=== PATIENT | female | born 1945 | race Caucasian/White ===

== ENCOUNTER 2017-01-08 11:52 | Observation (INO) | payer OTHER ==
[~2017-01-08] VITALS: Ht 152.4 cm; Wt 75.7 kg
[~2017-01-08 11:52] MED LIST: ALIGN4 MG PO; ARTHRITIS PAIN650 M1 PO; ASPIRIN LOW DOS81 M1 PO; ASPIRIN325 MG PO; ATORVASTATIN CA80 MG PO; CALCIUM ANTAC1000 MG PO; CHANTIX0.5 MG PO; CIPRO500 MG PO; COREG25 M1 PO; COREG25 MG PO; CYMBALTA60 MG PO; Coreg PO; Coumadin Protocol PO; Coumadin,Jantoven PO; Cymbalta PO; DIABETA,MICRON2.5 MG PO; DIABETA5 MG PO; Diabeta,Micronase PO; ECOTRIN325 MG PO; FISH OIL 1,0001 EAC7 PO; FISH OIL 1,0001 EAC8 PO; FLEXERIL10 MG PO; Feosol PO; GLIMEPIRIDE1 MG PO; GLIMEPIRIDE2 MG PO; GLYBURIDE5 MG PO; HYDROCHLOROTHIA25 MG PO; HYDROCODON-ACE1 EAC7 PO; Hydrodiuril,Oretic,E PO; IBUPROFEN800 MG PO; JANUVIA100 MG PO; LEXAPRO10 MG PO; LIDODERM 5% P1 PATCH TD; LIPITOR40 MG PO; LISINOPRIL40 MG PO; LORTAB 7.5-3251 EACH PO; Lipitor PO; MEDROL DOSEPAK4 MG PO; MIRALAX17 GM PO; MOBIC15 MG PO; MOBIC7.5 MG PO; MORPHINE SULFAT15 M1 PO; MOTRIN400 MG PO; MOTRIN800 MG PO; NITROGLYCERIN0.4 MG SL; NITROSTAT0.4 MG SL; Nitroglycerin SL; Nitrostat,NitroQuick SL; OMEPRAZOLE40 M1 PO; OXYCODONE-APAP1 EACH PO; PREVACID30 MG PO; PRILOSEC40 MG PO; PROBIOTIC1 EAC1 PO; Pyridoxine,Vitamin B PO; SENNA8.6 M1 PO; SENNA8.6 MG PO; ULTRAM50 MG PO; Ultram PO; VITAMIN B12-FO1 EACH PO; VITAMIN B6100 MG PO; VITAMIN D250000 UNIT PO; VITAMIN D5000 INTUN PO; VITAMIN D50000 UNI1 PO; Vicodin,Lortab 5/500 PO; Vicodin,Norco 5/325 PO; Vitamin B6 PO; ZANAFLEX4 MG PO; ZESTRIL,PRINIVI40 MG PO; Zestril,Prinivil PO
[2017-01-08 13:34] LABS: EOSINOPHIL (%) 1.8 % (0-5); EOSINOPHIL COUNT 0.2 K/uL (0-0.3); HEMATOCRIT 34.1 % (36.0-46.0); IMMATURE GRANULOCYTE (%) 0.6 % (0.0-0.7); IMMATURE GRANULOCYTE COUNT 0.1 K/uL; INSTRUMENT ABS NEUTROPHIL CT 5.9 K/uL; LYMPHOCYTE COUNT 2.4 K/uL (1.0-2.8); MCH 28.6 PG (29.0-34.0); MCHC 32.3 G/DL (30.0-36.0); MCV 88.8 FL (83-99); MEAN PLAT.VOLUME 8.7 uM^3 (9.5-12.4); MONOCYTE (%) 9.5 % (3-12); MONOCYTE COUNT 0.9 K/uL (0-0.8); NEUTROPHIL (%) 62.3 % (45-76); NEUTROPHIL COUNT 5.9 K/uL (1.8-6.4); PLATELET COUNT 247 K/uL (156-360); RBC DIS.WIDTH-CV 13.2 % (11.8-14.6); RBC DIS.WIDTH-SD 42.9 % (39-53); RED BLOOD COUNT 3.84 M/uL (3.80-5.20); WHITE BLOOD COUNT 9.5 K/uL (4.1-10.2)
[2017-01-08 13:56] LABS: TROP-I INTERPRETATION NEGATIVE; TROPONIN-I < 0.01 ng/mL (0.0-0.30)
[2017-01-08 13:56] LABS: CHLORIDE 106 mEq/L (99-109); POTASSIUM 4.2 mEq/L (3.7-5.4); SODIUM 136 mEq/L (136-147)
[2017-01-08 13:58] LABS: GLUCOSE 181 mg/dL (70-99)
[2017-01-08 14:00] LABS: ANION GAP 10 MEQ/L (2-14)
[2017-01-08 14:02] LABS: GFR ESTIMATE (CALCULATED) 52 mL/min/
[2017-01-08 14:03] LABS: UREA NITROGEN (BUN) 29 mg/dL (9-23)
[2017-01-08] MEDS ORDERED: PRINIVIL20 MG PO (14:37)
[2017-01-08] MEDS ORDERED: LEXAPRO20 MG PO (14:38)
[2017-01-08] MEDS ORDERED: GLUCOPHAGE XR750 MG PO (14:39)
[2017-01-08] MEDS ORDERED: PROBIOTIC1 EAC1 PO (14:40)
[2017-01-08] MEDS ORDERED: LIDOCAINE700 MG TD (14:40)
[2017-01-08] MEDS ORDERED: IMODIUM A-D2 M2 PO (14:41)
[2017-01-08] MEDS ORDERED: AMARYL4 MG PO (14:41)
[2017-01-08] MEDS ORDERED: TURMERIC500 M1 PO (14:42)
[2017-01-08] MEDS ORDERED: SUPER CALCIUM600 MG PO (14:43)
[2017-01-08] MEDS ORDERED: CINNAMON500 MG PO (14:44)
[2017-01-08] MEDS ORDERED: GINKGO BILOBA500 MG PO (14:44)
[2017-01-08] MEDS ORDERED: BENADRYL25 MG PO (14:45)
[2017-01-08 17:18] LABS: TROP-I INTERPRETATION NEGATIVE; TROPONIN-I < 0.01 ng/mL (0.0-0.30)
[2017-01-08 17:42] VITALS: BP 147/75
[2017-01-08 17:50] LABS: POINT-OF-CARE METER ID UU13113700
[2017-01-08 20:00] VITALS: BP 164/90
[2017-01-08 20:16] VITALS: BP 167/72
[2017-01-08 21:04] LABS: POINT-OF-CARE METER ID UU14162513
[2017-01-08 22:55] LABS: TROP-I INTERPRETATION NEGATIVE; TROPONIN-I < 0.01 ng/mL (0.0-0.30)
[2017-01-09 00:48] LABS: ADD MIUA? YES; BILIRUBIN NEGATIVE; BLOOD NEGATIVE; COLOR STRAW ((YELLOW)); GLUCOSE (STRIP) NEGATIVE; KETONES NEGATIVE; LEUKOCYTES LARGE; NITRITE NEGATIVE; PROTEIN (STRIP) NEGATIVE; SPECIFIC GRAVITY 1.005 (1.000-1.030); UROBILINOGEN 0.2 MG/DL (0.2-1.0)
[2017-01-09 01:17] LABS: BACTERIA RARE /HPF; EPITHELIAL CELLS RARE /HPF; MUCUS NONE SEEN /LPF; RED BLOOD CELLS 0-5 /HPF (0-5); UCUL ADDED? NO; WHITE BLOOD CELLS 30-40 /HPF (0-5)
[2017-01-09 03:00] VITALS: BP 115/59
[2017-01-09 06:57] LABS: HEMATOCRIT 35.1 % (36.0-46.0); MCH 28.8 PG (29.0-34.0); MCHC 32.8 G/DL (30.0-36.0); MCV 87.8 FL (83-99); MEAN PLAT.VOLUME 8.9 uM^3 (9.5-12.4); PLATELET COUNT 250 K/uL (156-360); RBC DIS.WIDTH-CV 13.3 % (11.8-14.6); RBC DIS.WIDTH-SD 43.1 % (39-53); WHITE BLOOD COUNT 7.9 K/uL (4.1-10.2)
[2017-01-09 07:19] LABS: ANION GAP 11 MEQ/L (2-14); CHLORIDE 107 MEQ/L (99-109); GFR ESTIMATE (CALCULATED) 58 mL/min/; GLUCOSE 123 mg/dL (70-99); SAMPLE HEMOLYSIS CHECK 0; SAMPLE ICTERIC CHECK 0; SAMPLE LIPEMIA CHECK 0; SODIUM 141 MEQ/L (136-147); UREA NITROGEN (BUN) 23 mg/dL (9-23)
[2017-01-09 07:57] VITALS: BP 172/72
[2017-01-09 10:33] VITALS: BP 168/64
[2017-01-09 11:52] VITALS: BP 145/67
== END 2017-01-09 12:45 | disposition home or self-care (01) ==
LOC: EME → EDBD 11:52 → EDOF 14:46 → 5WEST 14:46 → EDOF 14:46 → 5WEST 16:58
PROVIDERS: Emergency Medicine; Hospitalist; Physician Assistant Medical
DX: R07.9 Chest pain, unspecified (principal); Z95.1 Presence of aortocoronary bypass graft; Z95.5 Presence of coronary angioplasty implant and graft; E11.9 Type 2 diabetes mellitus without complications; E78.5 Hyperlipidemia, unspecified; I25.10 Atherosclerotic heart disease of native coronary artery without angina pectoris; Z87.891 Personal history of nicotine dependence; I10 Essential (primary) hypertension
CPT/HCPCS: 71010; 80048; 81003; 82948; 84484; 85025; 85027; 85730; 93005; 99281; 99285; G0378; J0360; J1644; J1815; J3010

== ENCOUNTER 2018-02-10 05:28 | Day surgery (SDC) | payer OTHER ==
[~2018-02-10] VITALS: Ht 154.9 cm; Wt 68.4 kg
[~2018-02-10 05:28] MED LIST changes: +ALEVE PM CAPLE1 EACH PO; +AMARYL4 MG PO; -ASPIRIN325 MG PO; +ASPIRIN81 M2 PO; +BENADRYL25 MG PO; +CINNAMON500 MG PO; +GINKGO BILOBA500 MG PO; +GLUCOPHAGE XR750 MG PO; +IMODIUM A-D2 M2 PO; +LEXAPRO20 MG PO; +LIDOCAINE700 MG TD; +PRINIVIL20 MG PO; +SUPER CALCIUM600 MG PO; +TRAMADOL HCL50 MG PO; +TURMERIC500 M1 PO; +VITAMIN B-121000 MC3 PO; +VITAMIN B-6100 MG PO
[2018-02-10 05:54] VITALS: BP 140/65
[2018-02-10 11:00] VITALS: BP 173/77
[2018-02-10 15:45] VITALS: BP 197/91
[2018-02-10 20:28] VITALS: BP 178/79
[2018-02-11 00:17] VITALS: BP 180/80
[2018-02-11 04:34] VITALS: BP 184/72
[2018-02-11 08:00] VITALS: BP 127/60; BP 159/70
[2018-02-11] MEDS ORDERED: OXYCODONE HCL5 MG PO (08:26)
[2018-02-11 12:12] VITALS: BP 174/74
== END 2018-02-11 13:20 | disposition home or self-care (01) ==
LOC: SDC → ENRESERV 08:04 → 3WEST 09:10 → 2SOUTH 09:10 → SDC 09:38 → 3WEST 10:37 → SDC 15:42 → 3WEST 02-11 13:20
PROVIDERS: Orthopaedic Surgery
PROC: 0RRK0J7 Replacement of Left Shoulder Joint with Synthetic Substitute, Glenoid Surface, Open Approach (ICD-10-PCS; principal; 2018-02-10)
DX: M19.012 Primary osteoarthritis, left shoulder (principal); E11.9 Type 2 diabetes mellitus without complications; E78.5 Hyperlipidemia, unspecified; I10 Essential (primary) hypertension; I25.2 Old myocardial infarction; Z95.5 Presence of coronary angioplasty implant and graft; Z95.1 Presence of aortocoronary bypass graft; Z79.84 Long term (current) use of oral hypoglycemic drugs; Z79.82 Long term (current) use of aspirin; Z82.49 Family history of ischemic heart disease and other diseases of the circulatory system; F17.210 Nicotine dependence, cigarettes, uncomplicated
CPT/HCPCS: 82948; C1776; G0378; J0131; J0690; J1100; J1170; J2250; J2405; J2710; J2795; J3010; J7030; J7050; J7643; S0020

== ENCOUNTER 2018-02-22 10:45 | Emergency (ER) | payer OTHER ==
[~2018-02-22] VITALS: Ht 154.9 cm; Wt 66.2 kg
[~2018-02-22 10:45] MED LIST changes: +OXYCODONE HCL5 MG PO
[2018-02-22 11:10] LABS: HEMATOCRIT 34.6 % (36.0-46.0); HEMOGLOBIN 12.1 G/DL (11.9-15.5); MCH 30.3 PG (29.0-34.0); MCV 86.5 FL (83-99); PLATELET COUNT 332 K/uL (156-360); RBC DIS.WIDTH-CV 11.9 % (11.8-14.6); RBC DIS.WIDTH-SD 37.8 % (39-53); WHITE BLOOD COUNT 13.6 K/uL (4.1-10.2)
[2018-02-22 11:23] LABS: ALBUMIN 4.2 g/dL (3.2-4.8)
[2018-02-22 11:24] LABS: CHLORIDE 98 mEq/L (99-109); POTASSIUM 3.7 mEq/L (3.7-5.4); SODIUM 136 mEq/L (136-147)
[2018-02-22 11:26] LABS: GLUCOSE 179 mg/dL (70-99); TOTAL PROTEIN 7.2 g/dL (6.4-8.3)
[2018-02-22 11:28] LABS: TOTAL BILIRUBIN 0.3 mg/dL (0.0-1.0)
[2018-02-22 11:29] LABS: ALKALINE PHOSPHATASE 68 IU/L (3-129)
[2018-02-22 11:30] LABS: CREATININE 0.6 mg/dL (0.6-1.3); GFR ESTIMATE (CALCULATED) > 59 mL/min/
[2018-02-22 11:31] LABS: AST (GOT) 13 IU/L (2-34); UREA NITROGEN (BUN) 15 mg/dL (9-23)
[2018-02-22 11:32] LABS: ALT (GPT) 7 IU/L (3-49)
[2018-02-22 13:25] LABS: APPEARANCE CLEAR ((CLEAR)); BILIRUBIN NEGATIVE; BLOOD NEGATIVE; COLOR YELLOW ((YELLOW)); GLUCOSE (STRIP) NEGATIVE; KETONES NEGATIVE; LEUKOCYTES TRACE; NITRITE NEGATIVE; PROTEIN (STRIP) NEGATIVE; SPECIFIC GRAVITY 1.017 (1.000-1.030); UROBILINOGEN 0.2 MG/DL (0.2-1.0)
[2018-02-22 13:29] LABS: BACTERIA RARE /HPF; EPITHELIAL CELLS RARE /HPF; HYALINE CASTS 0-5 /LPF; MUCUS TRACE /LPF; RED BLOOD CELLS 0-5 /HPF (0-5); UCUL ADDED? NO; WHITE BLOOD CELLS 0-5 /HPF (0-5)
[2018-02-22] MEDS ORDERED: PROTONIX20 MG PO (16:20)
[2018-02-22] MEDS ORDERED: ZOFRAN4 MG PO (16:20)
[2018-02-22 16:55] VITALS: BP 169/149
== END 2018-02-22 16:55 | disposition home or self-care (01) ==
LOC: EME 10:45
DX: K92.2 Gastrointestinal hemorrhage, unspecified (principal); R11.2 Nausea with vomiting, unspecified; R19.7 Diarrhea, unspecified; K57.30 Diverticulosis of large intestine without perforation or abscess without bleeding; K21.9 Gastro-esophageal reflux disease without esophagitis; E78.5 Hyperlipidemia, unspecified; E11.9 Type 2 diabetes mellitus without complications; I10 Essential (primary) hypertension; I25.2 Old myocardial infarction; F41.9 Anxiety disorder, unspecified; F32.9 Major depressive disorder, single episode, unspecified; Z72.0 Tobacco use; Z95.1 Presence of aortocoronary bypass graft; Z96.641 Presence of right artificial hip joint; Z96.611 Presence of right artificial shoulder joint; Z79.84 Long term (current) use of oral hypoglycemic drugs; Z79.82 Long term (current) use of aspirin; Z88.5 Allergy status to narcotic agent
CPT/HCPCS: 71046; 74177; 80053; 81003; 85027; 87493; 87506; 93005; 99281; 99285; J2405; J7030